=== PATIENT | female | born 1940 | race Caucasian/White ===

== ENCOUNTER → 2017-12-11 | Outpatient (CLI) | payer MEDICARE | END | disposition home or self-care (01) | LOC: OIH 09:44 | PROVIDERS: ATTEND Family Medicine | DX: M25.562 Pain in left knee (principal); M25.561 Pain in right knee | CPT/HCPCS: 73562 ==

== ENCOUNTER → 2020-09-17 | Outpatient (CLI) | payer MEDICARE | END | disposition home or self-care (01) | LOC: SHCH 13:29 | PROVIDERS: ATTEND Internal Medicine Cardiovascular Disease | DX: I08.0 Rheumatic disorders of both mitral and aortic valves (principal); I48.0 Paroxysmal atrial fibrillation; I11.9 Hypertensive heart disease without heart failure | CPT/HCPCS: 93306; 93356 ==

== ENCOUNTER 2021-05-12 11:58 | Inpatient (IN) | payer MEDICARE ==
[2021-05-12] VITALS (24 sets, daily range): BP systolic 84–118; BP diastolic 37–62
[~2021-05-12] VITALS: Ht 165.1 cm; Wt 74.4 kg
[~2021-05-12 11:58] MED LIST: CITA-107 PO; DAPS25TA PO; DILT180C63 PO; ESOM40CA54 PO; LEVO500T90 PO; METO-409 PO; RANO500T6 PO; RIVA20TA PO; ROSU20TA23 PO
[2021-05-12] MEDS ORDERED: PHENYLEPHRINE HCL 50 MG/NS 250ML IV PRN ×2 (16:00)
[2021-05-12 16:55] LABS: BASOPHILS % (AUTO) 0.3 % (0.0-5.0); EOSINOPHILS % (AUTO) 0.4 % (0.0-8.0); LYMPHOCYTES % (AUTO) 6.5 % (21.0-51.0); MEAN CORPUSCULAR HEMOGLOBIN 31.4 pg (27.0-33.0); MEAN CORPUSCULAR HGB CONC 32.2 g/dL (32.0-36.0); MEAN CORPUSCULAR VOLUME 97.6 fL (79-99); MONOCYTES % (AUTO) 8.3 % (3.0-13.0); NEUTROPHILS % (AUTO) 83.7 % (40.0-77.0); PLATELET COUNT (AUTO) 208 K/uL (130-400); RED CELL DISTRIBUTION WIDTH 16.6 % (11.0-15.5); WHITE BLOOD COUNT (AUTO) 19.4 K/uL (4.8-10.8)
[2021-05-12] MEDS ORDERED: 0.9%NACL 1000ML 1,000 ML IV SCH (17:00)
[2021-05-12 17:08] LABS: ABG BASE EXCESS 1.7 mmol/L (-2.0-3.0); ABG HCO3 25.6 mmol/L (21.0-28.0); ABG OXYGEN SATURATION 43.1 % (95.0-99.0); ABG PCO2 37 mmHg (32-45)
[2021-05-12 17:09] LABS: HEMATOCRIT 20.5 % (36-48); INR 1.15 (0.85-1.15); PROTHROMBIN TIME 12.4 SEC (9.6-11.6)
[2021-05-12 17:12] LABS: ALBUMIN 2.5 g/dL (3.5-5.0); BILIRUBIN,DIRECT 0.4 mg/dL (0.0-0.3); BILIRUBIN,TOTAL 1.4 mg/dL (0.2-1.0); TOTAL PROTEIN, SERUM 4.6 g/dL (6.0-8.3)
[2021-05-12 17:20] LABS: CREATININE 0.9 mg/dL (0.5-1.5); POTASSIUM 3.5 mmol/L (3.5-5.1)
[2021-05-12 17:25] LABS: ALBUMIN 2.4 g/dL (3.5-5.0); BILIRUBIN,TOTAL 1.3 mg/dL (0.2-1.0); MAGNESIUM 2.3 mg/dL (1.80-2.40); PHOSPHORUS 3.2 mg/dL (2.5-4.9)
[2021-05-12] MEDS: MIDODRINE HCL 5 MG TABLET PO SCH (21:17)
[2021-05-13] VITALS (61 sets, daily range): BP systolic 91–161; BP diastolic 35–89
[2021-05-13 03:41] LABS: BASOPHILS % (AUTO) 0.3 % (0.0-5.0); EOSINOPHILS % (AUTO) 1.8 % (0.0-8.0); HEMATOCRIT 23.7 % (36-48); LYMPHOCYTES % (AUTO) 5.1 % (21.0-51.0); MEAN CORPUSCULAR HEMOGLOBIN 31.5 pg (27.0-33.0); MEAN CORPUSCULAR HGB CONC 32.1 g/dL (32.0-36.0); MEAN CORPUSCULAR VOLUME 98.3 fL (79-99); MONOCYTES % (AUTO) 6.9 % (3.0-13.0); NEUTROPHILS % (AUTO) 84.8 % (40.0-77.0); PLATELET COUNT (AUTO) 209 K/uL (130-400); RED BLOOD CELL COUNT(AUTO) 2.41 MIL/uL (4.00-5.50); RED CELL DISTRIBUTION WIDTH 18.3 % (11.0-15.5); WHITE BLOOD COUNT (AUTO) 17.5 K/uL (4.8-10.8)
[2021-05-13 04:13] LABS: ALBUMIN 2.4 g/dL (3.5-5.0); BILIRUBIN,TOTAL 1.7 mg/dL (0.2-1.0); CREATININE 0.7 mg/dL (0.5-1.5); MAGNESIUM 2.2 mg/dL (1.80-2.40); PHOSPHORUS 2.5 mg/dL (2.5-4.9); POTASSIUM 3.3 mmol/L (3.5-5.1); THYROID STIMULATING HORMONE 2.21 uIU/mL (0.36-3.74); TOTAL PROTEIN, SERUM 5.2 g/dL (6.0-8.3)
[2021-05-13] MEDS: MIDODRINE HCL 5 MG TABLET PO SCH ×3 (06:12→20:14)
[2021-05-13] MEDS ORDERED: PANTOPRAZOLE 40 MG TAB DR PO SCH ×2 (09:00→21:00)
[2021-05-13] MEDS ORDERED: POTASSIUM CHLORIDE 20MEQ/100ML 100 ML IV PRN (10:00)
[2021-05-13] MEDS ORDERED: KCL 20 MEQ ERTAB PO PRN (10:00)
[2021-05-13] MEDS ORDERED: LIDOCAINE HCL-MPF 1% 2ML VIAL IV PRN (10:00)
[2021-05-13] MEDS: POTASSIUM CHLORIDE 10% ELIXIR 20 MEQ/15 ML UDCUP PO PRN ×3 (10:21→15:20)
[2021-05-13 11:49] LABS: HEMATOCRIT 26.3 % (36-48)
[2021-05-13] MEDS ORDERED: DILTIAZEM 50MG VIAL IV SCH (16:45)
[2021-05-13] MEDS ORDERED: DILTIAZEM 180MG SR CAP PO SCH (17:19)
[2021-05-13 17:48] LABS: HEMATOCRIT 24.9 % (36-48)
[2021-05-13] MEDS: LEVOFLOXACIN 500 MG TABLET PO SCH (17:52)
[2021-05-13] MEDS: CITALOPRAM 20 MG TABLET PO SCH (17:52)
[2021-05-13] MEDS: DILTIAZEM 180MG SR CAP PO SCH (17:55)
[2021-05-13] MEDS: DAPSONE 25 MG TAB PO SCH (18:25)
[2021-05-13] MEDS: ATORVASTATIN 40 MG TABLET PO SCH (20:01)
[2021-05-13] MEDS: RANOLAZINE 500 MG TAB.SR.12H PO SCH (20:01)
[2021-05-13] MEDS: METOPROLOL SUCCINATE 50 MG TAB.SR.24H PO SCH (20:02)
[2021-05-14] VITALS (18 sets, daily range): BP systolic 96–128; BP diastolic 36–72
[2021-05-14 00:45] LABS: HEMATOCRIT 22.1 % (36-48)
[2021-05-14 05:25] LABS: BASOPHILS % (AUTO) 0.3 % (0.0-5.0); EOSINOPHILS % (AUTO) 4.3 % (0.0-8.0); HEMATOCRIT 22.4 % (36-48); LYMPHOCYTES % (AUTO) 6.8 % (21.0-51.0); MEAN CORPUSCULAR HGB CONC 31.7 g/dL (32.0-36.0); MEAN CORPUSCULAR VOLUME 97.8 fL (79-99); MONOCYTES % (AUTO) 8.1 % (3.0-13.0); NEUTROPHILS % (AUTO) 79.7 % (40.0-77.0); PLATELET COUNT (AUTO) 180 K/uL (130-400); RED BLOOD CELL COUNT(AUTO) 2.29 MIL/uL (4.00-5.50); RED CELL DISTRIBUTION WIDTH 18.1 % (11.0-15.5); WHITE BLOOD COUNT (AUTO) 15.4 K/uL (4.8-10.8)
[2021-05-14 05:32] LABS: INR 1.07 (0.85-1.15); PROTHROMBIN TIME 11.6 SEC (9.6-11.6)
[2021-05-14 05:33] LABS: PARTIAL THROMBOPLASTIN TIME 27.1 SEC (26.3-35.5)
[2021-05-14 05:44] LABS: ALBUMIN 2.2 g/dL (3.5-5.0); BILIRUBIN,TOTAL 1.8 mg/dL (0.2-1.0); CREATININE 0.5 mg/dL (0.5-1.5); MAGNESIUM 2.1 mg/dL (1.80-2.40); PHOSPHORUS 1.7 mg/dL (2.5-4.9)
[2021-05-14] MEDS ORDERED: PANTOPRAZOLE 40 MG TAB DR PO SCH (09:00)
[2021-05-14] MEDS ORDERED: PROPOFOL 10 MG/ML 20ML VIAL IV ONE (09:01)
[2021-05-14] MEDS: DAPSONE 25 MG TAB PO SCH (09:46)
[2021-05-14] MEDS: METOPROLOL SUCCINATE 50 MG TAB.SR.24H PO SCH ×2 (09:46→20:31)
[2021-05-14] MEDS: CITALOPRAM 20 MG TABLET PO SCH (09:46)
[2021-05-14] MEDS: RANOLAZINE 500 MG TAB.SR.12H PO SCH ×2 (09:46→20:31)
[2021-05-14] MEDS: LEVOFLOXACIN 500 MG TABLET PO SCH (09:47)
[2021-05-14] MEDS: DILTIAZEM 180MG SR CAP PO SCH (09:47)
[2021-05-14] MEDS ORDERED: SOD PHOSPHATE 45 MMOL/15 ML VI 15 MMOL in 0.9% NACL 250ML 250 ML IV PRN (16:30)
[2021-05-14 17:54] LABS: HEMATOCRIT 25.1 % (36-48)
[2021-05-14] MEDS: ATORVASTATIN 40 MG TABLET PO SCH (20:31)
[2021-05-14] MEDS ORDERED: BENZOCAINE/MENTH/CETYLPYRD CL 1 EACH LOZENGE MM ONE (23:10)
[2021-05-15 03:44] VITALS: BP 139/62
[2021-05-15 04:16] LABS: BASOPHILS % (AUTO) 0.4 % (0.0-5.0); HEMATOCRIT 25.7 % (36-48); LYMPHOCYTES % (AUTO) 6.8 % (21.0-51.0); MEAN CORPUSCULAR HEMOGLOBIN 31.4 pg (27.0-33.0); MEAN CORPUSCULAR HGB CONC 32.3 g/dL (32.0-36.0); MEAN CORPUSCULAR VOLUME 97.3 fL (79-99); MONOCYTES % (AUTO) 8.2 % (3.0-13.0); NEUTROPHILS % (AUTO) 77.6 % (40.0-77.0); PLATELET COUNT (AUTO) 235 K/uL (130-400); RED BLOOD CELL COUNT(AUTO) 2.64 MIL/uL (4.00-5.50); RED CELL DISTRIBUTION WIDTH 17.6 % (11.0-15.5); WHITE BLOOD COUNT (AUTO) 11.6 K/uL (4.8-10.8)
[2021-05-15 04:50] LABS: ALBUMIN 2.4 g/dL (3.5-5.0); BILIRUBIN,TOTAL 1.4 mg/dL (0.2-1.0); CREATININE 0.6 mg/dL (0.5-1.5); PHOSPHORUS 3.5 mg/dL (2.5-4.9); POTASSIUM 3.3 mmol/L (3.5-5.1); TOTAL PROTEIN, SERUM 5.4 g/dL (6.0-8.3)
[2021-05-15] MEDS: POTASSIUM CHLORIDE 10% ELIXIR 20 MEQ/15 ML UDCUP PO PRN ×2 (05:22→08:14)
[2021-05-15 07:58] VITALS: BP 128/56
[2021-05-15] MEDS: CITALOPRAM 20 MG TABLET PO SCH (08:15)
[2021-05-15] MEDS: METOPROLOL SUCCINATE 50 MG TAB.SR.24H PO SCH ×2 (08:15→20:51)
[2021-05-15] MEDS: DILTIAZEM 180MG SR CAP PO SCH (08:15)
[2021-05-15] MEDS: RANOLAZINE 500 MG TAB.SR.12H PO SCH ×2 (08:15→20:51)
[2021-05-15] MEDS: LEVOFLOXACIN 500 MG TABLET PO SCH (08:15)
[2021-05-15] MEDS: DAPSONE 25 MG TAB PO SCH (09:00)
[2021-05-15 12:00] VITALS: BP 127/57
[2021-05-15 16:00] VITALS: BP 142/67
[2021-05-15] MEDS: BENZOCAINE/MENTH/CETYLPYRD CL 1 EACH LOZENGE MM PRN ×2 (18:12→20:51)
[2021-05-15 19:09] VITALS: BP 129/72
[2021-05-15] MEDS: ATORVASTATIN 40 MG TABLET PO SCH (20:51)
[2021-05-15 22:51] VITALS: BP 125/75
[2021-05-16] MEDS: BENZOCAINE/MENTH/CETYLPYRD CL 1 EACH LOZENGE MM PRN (01:28)
[2021-05-16 04:10] VITALS: BP 139/79
[2021-05-16 04:19] LABS: BASOPHILS % (AUTO) 0.4 % (0.0-5.0); EOSINOPHILS % (AUTO) 5.7 % (0.0-8.0); LYMPHOCYTES % (AUTO) 11.2 % (21.0-51.0); MEAN CORPUSCULAR HEMOGLOBIN 30.9 pg (27.0-33.0); MEAN CORPUSCULAR HGB CONC 31.9 g/dL (32.0-36.0); MEAN CORPUSCULAR VOLUME 97.1 fL (79-99); MONOCYTES % (AUTO) 11.2 % (3.0-13.0); NEUTROPHILS % (AUTO) 70.4 % (40.0-77.0); PLATELET COUNT (AUTO) 238 K/uL (130-400); RED BLOOD CELL COUNT(AUTO) 2.78 MIL/uL (4.00-5.50); RED CELL DISTRIBUTION WIDTH 17.3 % (11.0-15.5); WHITE BLOOD COUNT (AUTO) 11.3 K/uL (4.8-10.8)
[2021-05-16 04:31] LABS: CREATININE 0.5 mg/dL (0.5-1.5); POTASSIUM 3.7 mmol/L (3.5-5.1)
[2021-05-16] MEDS: POTASSIUM CHLORIDE 10% ELIXIR 20 MEQ/15 ML UDCUP PO PRN (04:56)
[2021-05-16 08:00] VITALS: BP 124/63
[2021-05-16] MEDS: DILTIAZEM 180MG SR CAP PO SCH (08:40)
[2021-05-16] MEDS: DAPSONE 25 MG TAB PO SCH (08:40)
[2021-05-16] MEDS: RANOLAZINE 500 MG TAB.SR.12H PO SCH (08:40)
[2021-05-16] MEDS: CITALOPRAM 20 MG TABLET PO SCH (08:40)
[2021-05-16] MEDS: METOPROLOL SUCCINATE 50 MG TAB.SR.24H PO SCH (08:40)
[2021-05-16] MEDS: LEVOFLOXACIN 500 MG TABLET PO SCH (08:40)
[2021-05-16 11:39] VITALS: BP 105/60
== END 2021-05-16 14:20 | DRG 189 ==
LOC: EDH 11:58 → EDHIP 11:59 → 2BH 15:40 → 2DH 05-14 17:55
PROVIDERS: ADMIT Internal Medicine Critical Care Medicine; ATTEND Internal Medicine Critical Care Medicine
PROC: 30233N1 Transfusion of Nonautologous Red Blood Cells into Peripheral Vein, Percutaneous Approach (ICD-10-PCS; 2021-05-12)
PROC: 0DJ08ZZ Inspection of Upper Intestinal Tract, Via Natural or Artificial Opening Endoscopic (ICD-10-PCS; principal; 2021-05-14)
DX: J96.01 Acute respiratory failure with hypoxia (principal); R57.1 Hypovolemic shock; I48.20 Chronic atrial fibrillation, unspecified; D64.9 Anemia, unspecified; Z79.01 Long term (current) use of anticoagulants; S02.2XXA Fracture of nasal bones, initial encounter for closed fracture; I10 Essential (primary) hypertension; I25.10 Atherosclerotic heart disease of native coronary artery without angina pectoris; Z79.899 Other long term (current) drug therapy; Z85.038 Personal history of other malignant neoplasm of large intestine; W18.39XA Other fall on same level, initial encounter; Y93.89 Activity, other specified; Y92.89 Other specified places as the place of occurrence of the external cause; Y99.8 Other external cause status; R00.0 Tachycardia, unspecified
CPT/HCPCS: 36415; 36430; 36600; 43235; 71045; 80048; 80053; 80076; 82435; 82803; 82947; 82948; 83605; 83735; 84100; 84132; 84145; 84295; 84443; 85014; 85018; 85025; 85610; 85730; 86850; 86900; 86901; 86923; 87040; 87077; 87088; 87186; 93005; 94640; 97039; G0378; J2704; J7030; P9016

== ENCOUNTER → 2021-09-14 | Outpatient (CLI) | payer MEDICARE ==
[~2021-09-14] MED LIST changes: +BALS60OI TP; +CYAN-52 PO; +LEVO-70 PO; -LEVO500T90 PO
== END | disposition home or self-care (01) ==
LOC: SHCH 09:37
PROVIDERS: ATTEND Internal Medicine Cardiovascular Disease
DX: I34.0 Nonrheumatic mitral (valve) insufficiency (principal); R55 Syncope and collapse; I10 Essential (primary) hypertension; E78.5 Hyperlipidemia, unspecified
CPT/HCPCS: 93306

== ENCOUNTER → 2021-10-19 | Outpatient (CLI) | payer MEDICARE ==
[2021-10-19 13:10] LABS: CARBON DIOXIDE 32 mmol/L (21-32); CHLORIDE 103 mmol/L (101-111); CREATININE 0.9 mg/dL (0.5-1.5); GLOMERULAR FILTR. RATE CALC 64 mL/min (>60); GLUCOSE,RANDOM 105 mg/dL (70-105); POTASSIUM 4.6 mmol/L (3.5-5.1); SODIUM SERUM 143 mmol/L (136-145); UREA NITROGEN, BLOOD 18 mg/dL (7-18)
[2021-10-19 13:12] LABS: DIGOXIN < 0.20 ng/mL (0.50-2.00)
== END | disposition home or self-care (01) ==
LOC: LAB 11:24
PROVIDERS: ATTEND Internal Medicine Cardiovascular Disease
DX: I10 Essential (primary) hypertension (principal); I48.0 Paroxysmal atrial fibrillation; I65.1 Occlusion and stenosis of basilar artery; I67.9 Cerebrovascular disease, unspecified; E78.5 Hyperlipidemia, unspecified; Z79.01 Long term (current) use of anticoagulants; Z79.899 Other long term (current) drug therapy
CPT/HCPCS: 36415; 80048; 80162; 83880